=== PATIENT | male | born 1955 | race Hispanic/Latino ===

== ENCOUNTER 2019-08-28 11:33 | Emergency (ER) | payer OTHER, SELFPAY ==
[2019-08-28 12:34] LABS: #Eosinphils 0.2 thou/uL (0.0-0.7); #Lymphocytes 2.4 thou/uL (1.20-3.40); #Monocytes 0.4 thou/uL (0.11-0.59); #Neutrophils 4.5 thou/uL (1.40-6.50); %Basophils 0.2 % (0.0-1.0); %Eosinophils 2.9 % (0.0-10.0); %Lymphocytes 31.9 % (21.0-51.0); %Monocytes 4.8 % (0.0-10.0); %Neutrophils 60.1 % (42.0-75.0); Mean Corpuscular HGB CONC 35.2 g/dL (32.0-36.0); Mean Corpuscular Hemoglobin 34.2 pg (27.0-31.0); Mean Corpuscular Volume 97.2 fL (78.0-98.0); Mean Platelet Volume 8.5 fL (7.4-10.4); Platelet Count 157 thou/uL (130-400); Red Blood Cell (RBC) Count 4.66 mill/uL (4.70-6.10); White Blood Cell (WBC) Count 7.4 thou/uL (4.8-10.8)
--- NOTE | 2019-08-28 12:36 | RAD ---
PORTABLE CHEST: Date: 08/28/2019 HISTORY: Syncope, high blood pressure. COMPARISON: None. FINDINGS: Heart size is enlarged. There are chronic appearing lung changes. Left heart border is indistinct. I am not certain if this is just related to chronic lung change or represents some infiltrate. I would favor it all being chronic in nature. IMPRESSION: Cardiomegaly with chronic appearing lung change. Some element of edema could be present. Pulmonary ve ssels are mildly prominent. There is an indistinct left heart border. A PA and lateral chest film may be of additional information. POS: [facility]
[2019-08-28 12:57] LABS: ALT (SGPT) 31 U/L (8-55); AST (SGOT) 44 U/L (5-34); Albumin 3.8 g/dL (3.4-4.8); Alkaline Phosphatase 102 U/L (40-110); Anion Gap 11 mmol/L (10-20); BUN (Urea Nitrogen) 12 mg/dL (8.4-25.7); Bilirubin, Total 0.7 mg/dL (0.2-1.2); CK (CPK) 69 U/L (30-200); Calc. Creatinine Clearance 0 mL/min (70-130); Calcium 9.1 mg/dL (7.8-10.44); Carbon Dioxide 26 mmol/L (23-31); Chloride 102 mmol/L (98-107); Estimated GFR-MDRD 77; Globulin 4.6 g/dL (2.4-3.5); Glucose 140 mg/dL (80-115); Lipase 19 U/L (8-78); Potassium 3.9 mmol/L (3.5-5.1); Protein, Total 8.4 g/dL (5.8-8.1); Sodium 135 mmol/L (136-145)
[2019-08-28] MEDS ORDERED: Meclizine HCl 25 MG TAB ONE (14:10)
== END 2019-08-28 16:09 | disposition home or self-care (01) ==
LOC: ERS 11:33
DX: I10 Essential (primary) hypertension (principal); F17.290 Nicotine dependence, other tobacco product, uncomplicated; Z79.899 Other long term (current) drug therapy
CPT/HCPCS: 36415; 71045; 80053; 82550; 83690; 83880; 84484; 85025; 93005; 94760; J8597

== ENCOUNTER 2020-07-26 07:21 | Outpatient (CLI) | payer MEDICARE ==
[2020-07-26 16:24] LABS: #Eosinphils 0.3 10x3/uL (0.0-0.5); #Monocytes 0.5 10x3/uL (0.0-1.1); #Neutrophils 4.5 10x3/uL (1.5-8.4); %Basophils 0.5 % (0.0-2.0); %Eosinophils 3.5 % (0.0-6.0); %Lymphocytes 29.1 % (18.0-47.0); %Monocytes 6.2 % (0.0-10.0); %Neutrophils 60.4 % (40.0-75.0); Hemoglobin 12.4 g/dL (14.0-18.0); Mean Corpuscular HGB CONC 33.2 G/DL (32.0-36.0); Mean Corpuscular Hemoglobin 30.8 PG (27.0-33.0); Mean Corpuscular Volume 92.6 fl (80.0-100.0); Mean Platelet Volume 10.7 fl (7.4-10.4); Platelet Count 234 10x3/uL (130-400); RBC Distribution Width 13.3 % (11.5-14.5); Red Blood Cell (RBC) Count 4.03 10x6/uL (4.40-5.80); White Blood Cell (WBC) Count 7.4 10x3/uL (4.5-11.0)
[2020-07-26 16:36] LABS: Anion Gap 13 mmol/L (10-20); BUN (Urea Nitrogen) 11 mg/dL (8.4-25.7); Calc. Creatinine Clearance 0 mL/min (70-130); Calcium 8.4 mg/dL (7.8-10.44); Carbon Dioxide 24 mmol/L (23-31); Chloride 105 mmol/L (98-107); Glucose 124 mg/dL (80-115); Sodium 138 mmol/L (136-145)
--- NOTE | 2020-07-27 11:23 | EKG ---
Test Reason : Blood Pressure : / mmHG Vent. Rate : 082 BPM Atrial Rate : 082 BPM P-R Int : 148 ms QRS Dur : 072 ms QT Int : 382 ms P-R-T Axes : 016 031 042 degrees QTc Int : 446 ms Normal sinus rhythm Normal ECG No previous ECGs available Confirmed by GISELL ADLER ([id number]) on 07/27/2020 11:22:56 AM Referred By: MARI Confirmed By:GISELL ADLER
[2020-07-27 13:06] LABS: SARS-CoV-2 PCR by NAA Not Detected (NotDetected)
== END 2020-07-26 07:22 | disposition home or self-care (01) ==
LOC: LABBT 07:21
PROVIDERS: ATTEND Specialist
DX: Z01.818 Encounter for other preprocedural examination (principal); Z20.822 Contact with and (suspected) exposure to COVID-19; K45.8 Other specified abdominal hernia without obstruction or gangrene; K21.9 Gastro-esophageal reflux disease without esophagitis; B96.81 Helicobacter pylori [H. pylori] as the cause of diseases classified elsewhere; R74.01 Elevation of levels of liver transaminase levels; K76.9 Liver disease, unspecified; R77.2 Abnormality of alphafetoprotein; K74.60 Unspecified cirrhosis of liver; K76.6 Portal hypertension; R59.0 Localized enlarged lymph nodes
CPT/HCPCS: 74183; 80048; 85025; 87635; 93005; 93010; U0003; U0005

== ENCOUNTER 2020-07-29 07:28 | Day surgery (SDC) | payer MEDICARE ==
[2020-07-27 13:29] VITALS: BMI 35.7
[2020-07-29] MEDS ORDERED: Acetaminophen 500 MG TAB ONE (07:56)
[2020-07-29] MEDS ORDERED: Ketorolac Tromethamine 30 MG/ML VIAL ONE (07:56)
[2020-07-29] MEDS ORDERED: EPINEPHrine 1 MG/ML AMP ONE (08:57)
[2020-07-29] MEDS ORDERED: Bupivacaine 0.25% HCL 30 ML VIAL ONE (08:57)
[2020-07-29] MEDS ORDERED: Midazolam HCl 2 mg/2 ml Vial ONE (09:19)
[2020-07-29] MEDS ORDERED: Fentanyl 100 MCG/2 ML VIAL ONE (09:19)
[2020-07-29] MEDS ORDERED: Succinylcholine 200 MG/10 ml SYRINGE FS ONE (09:36)
[2020-07-29] MEDS ORDERED: Lidocaine 1% PF 5 ML VIAL ONE (09:36)
[2020-07-29] MEDS ORDERED: PROPOFOL 200 MG/20 ML VIAL ONE (09:36)
[2020-07-29] MEDS ORDERED: ePHEDrine 50 MG/ML VIAL ONE (09:36)
[2020-07-29] MEDS ORDERED: Vecuronium 10 MG VIAL ONE (09:36)
[2020-07-29] MEDS ORDERED: SUGAMMADEX SODIUM 200 MG/2 ML VIAL ONE (11:39)
--- NOTE | 2020-07-29 12:59 | RAD ---
Frontal radiograph chest: 07/29/2020 COMPARISON: 06/30/2020 HISTORY: Abnormal findings on recent abdominal surgery raising question for possible tuberculosis FINDINGS: Pneumomediastinum and/or pneumopericardium noted along the left heart border, new. Linear a reas of peripheral mild increased linear interstitial density again noted. No obvious pneumothorax or large volume pleural effusion. No pulmonary parenchymal findings suspicious for tuberculosis. IMPRESSION: Interval development of small volume pneumomediastinum and/or pneumopericardium. No radio graphic evidence of tuberculosis. Follow-up chest x-rays advised. Results called to Dr. Leija at 12:45 PM 07/29/2020
[2020-07-29] MEDS ORDERED: HYDROcodone/Acetaminophen 5/325 mg Tablet ONE (13:18)
--- NOTE | 2020-07-30 07:20 | OP ---
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 OPERATION PERFORMED: Exploratory laparoscopy, peritoneal biopsy, aspiration of ascites, lysis of adhesions, core needle biopsy of right lower lobe of liver. ANESTHESIA: General endotracheal. INDICATIONS: The patient is a 64-year-old male. He presents with history of progressive problems with abdominal discomfort with nausea and vomiting and weight loss. CT scan revealed possible paraduodenal hernia with an encapsulated area of bowel. Recent MRI of the liver indicated areas of possible malignancy primarily in the right lower lobe of the liver. He was taken to the operating at this time for laparoscopic evaluation. DESCRIPTION OF OPERATION: Informed consent was obtained. Patient was taken to the operating room, where general endotracheal anesthesia was obtained with patient in the supine position. Abdomen was prepped with ChloraPrep and draped in sterile fashion. Local anesthetic was infiltrated and 5 mm infraumbilical incision was created. Attempt was made to place a Veress needle in the peritoneal cavity. This did not appear to be successful as it was difficult to find an area of appropriate free space for pneumoperitoneum. I therefore obtained access into the abdominal cavity via Optiview port. Unfortunately, even with the camera and the port in the correct plane, there was very little space inside the abdominal cavity. There was obvious dense white rind over all of this viscera as well as the parietal peritoneum. I examined around by the abdomen, noted no bleeding or evidence of intraabdominal injury. I was able to get a second port in the right lower quadrant. Through this port, I introduced a grasper and began gently bluntly dissecting to try and identify some anatomy would allow me to turn what the underlying problem was. There was no purulence within the abdomen. There was a relatively small amount of ascites, primarily left side of the abdomen. This was aspirated and sent for cytology. I was eventually able to identify dense adhesions up to the anterior abdominal wall just to the left of midline and these were bluntly mobilized away from the abdominal wall. There did not appear to be any infection or enteric leak. I was able to eventually identify the left lobe of the liver that was densely adherent to the anterior abdominal wall, could not be mobilized away. There was again a dense white rind underlying liver. I was eventually able to identify the right side of the liver by . I was able to identify the gallbladder and some omentum, was able to strip bluntly away from the gallbladder and liver. The liver felt firm, but did not have an obvious malignant appearance. I decided to attempt to get biopsy of this in hopes that this would give us a diagnosis for this particular problem. I utilized a 14-gauge core biopsy needle and obtained 3 cores from the right lobe of the liver. None of these revealed evidence of malignancy. There was evidence of cirrhosis. I then performed a wedge excision of the liver just anterior to the gallbladder and there was a prominent nodule in this area. This also proved to be benign liver tissue. Finally, I submitted a segment of the thick white rind of the parietal peritoneum and this furthermore was benign without evidence of malignancy. At this point, it was uncertain what the diagnosis was. We realized the possibility of some form of infectious problem or perhaps tuberculous peritonitis. I stripped away additional tissue as I could off the bowel and submitted this partially to Microbiology for further tissue culture, partially to Pathology for further evaluation and cytology as necessary. I decided not to proceed with a laparotomy. I removed all ports under direct vision. Pneumoperitoneum was carefully evacuated. Additional local anesthetic was infiltrated in each port. 0.25% Marcaine . Skin edges approximated with 4-0 Monocryl subcuticular suture and Dermabond was placed externally. There were no complications. Blood loss was negligible. The patient tolerated the procedure well and was taken to recovery room in stable condition. Job ID: [id number]
[2020-08-01 13:13] LABS: QuantiFERON-TB Gold Plus Negative (Negative)
[2020-08-02 11:37] LABS: Fungus Stain Final report (.)
[2020-08-02 11:37] LABS: Fungus Stain Final report (.)
[2020-08-27 14:37] LABS: Fungus Culture Final report (.)
[2020-08-27 14:37] LABS: Fungus Culture Final report (.)
== END 2020-07-29 14:26 | disposition home or self-care (01) ==
LOC: SDC 07:28
PROVIDERS: ATTEND Specialist
PROC: 0W9F4ZX Drainage of Abdominal Wall, Percutaneous Endoscopic Approach, Diagnostic (ICD-10-PCS; principal; 2020-07-29)
PROC: 0W9G3ZZ Drainage of Peritoneal Cavity, Percutaneous Approach (ICD-10-PCS; 2020-07-29)
PROC: 0FB13ZX Excision of Right Lobe Liver, Percutaneous Approach, Diagnostic (ICD-10-PCS; 2020-07-29)
DX: D21.4 Benign neoplasm of connective and other soft tissue of abdomen (principal); K74.60 Unspecified cirrhosis of liver; R18.8 Other ascites; J98.4 Other disorders of lung; E03.9 Hypothyroidism, unspecified; I10 Essential (primary) hypertension; E66.9 Obesity, unspecified; F17.210 Nicotine dependence, cigarettes, uncomplicated; Z68.35 Body mass index [BMI] 35.0-35.9, adult; Z79.899 Other long term (current) drug therapy
CPT/HCPCS: 36415; 71045; 86480; 87070; 87102; 87116; 87205; 87206; 88112; 88305; 88307; 88312; 88313; 88331; 88341; 88342; J0171; J0690; J1885; J2250; J2704; J3010; J3490; S0020